=== PATIENT | female | born 1990 | race Caucasian/White ===

== ENCOUNTER 2018-02-13 16:39 | Emergency (ER) | payer OTHER ==
[~2018-02-13] VITALS: Ht 162.6 cm; Wt 56.7 kg
[2018-02-13] MEDS ORDERED: SPIRONOLACTONE25 M1 PO (16:53)
[2018-02-13] MEDS ORDERED: MOBIC7.5 MG PO (17:38)
[2018-02-13 18:43] VITALS: BP 110/74
== END 2018-02-13 18:44 | disposition home or self-care (01) ==
LOC: ER 16:39
DX: S43.491A Other sprain of right shoulder joint, initial encounter (principal); F17.210 Nicotine dependence, cigarettes, uncomplicated; X58.XXXA Exposure to other specified factors, initial encounter; Y92.89 Other specified places as the place of occurrence of the external cause; Y93.89 Activity, other specified; Y99.8 Other external cause status